=== PATIENT | female | born 1990 | race Caucasian/White ===

== ENCOUNTER 2016-11-08 22:43 | Emergency (ER) | payer OTHER ==
[2016-11-08 23:28] LABS: BILIRUBIN NEGATIVE (NEGATIVE); BLOOD 1+ Ery/uL (NEGATIVE); CLARITY CLEAR (CLEAR); COLOR YELLOW (YELLOW); GLUCOSE (U) NORMAL (NORMAL); KETONE (U) TRACE mg/dL (NEGATIVE); LEUKOCYTES NEGATIVE Leu/uL (NEGATIVE); NITRITE NEGATIVE (NEGATIVE); PROTEIN TRACE (LOW) mg/dL (NEGATIVE); SPECIFIC GRAVITY >=1.030 (1.001-1.030); UROBILINOGEN 0.2 mg/dL (0.2-1.0)
[2016-11-08 23:33] LABS: BACTERIA TRACE; MUCOUS LARGE
[2016-11-08 23:37] LABS: BASOPHIL 0.7 % (0-2); EOSINOPHIL 1.9 % (0-5); HCT 38.2 % (37.0-47.0); HGB 12.8 g/dl (12.5-16.0); LYMPHOCYTE 32.2 % (15-48); MCH 30.8 pg (25.0-31.0); MCHC 33.5 g/dL (32.0-36.0); MCV 91.8 fL (78.0-100.0); MONOCYTE 11.5 % (0-12); NEUTROPHIL 53.7 % (41-80); PLT 330 K/uL (150-400); RBC 4.16 M/uL (4.20-5.40); RDW 13.4 % (11.5-14.0); WBC 8.1 K/uL (4.0-10.5)
[2016-11-08 23:53] LABS: ALBUMIN 4.5 g/dL (3.5-5.0); BILIRUBIN - TOTAL 0.3 mg/dL (0.1-1.0); CREATININE 0.7 mg/dL (0.5-1.0); GLOBULIN (CALCULATION) 2.5 g/dL (2.2-4.2); POTASSIUM 4.2 mmol/L (3.5-5.1)
== END 2016-11-09 00:20 | disposition home or self-care (01) ==
LOC: FER 22:43
PROVIDERS: Nurse Practitioner
DX: B19.20 Unspecified viral hepatitis C without hepatic coma (principal); Z88.0 Allergy status to penicillin; Z86.19 Personal history of other infectious and parasitic diseases
CPT/HCPCS: 36415; 80053; 81001; 85025

== ENCOUNTER 2020-10-12 02:01 | Day surgery (SDCO) | payer OTHER ==
[~2020-10-12 02:01] MED LIST: BACTRIM DS TAB1 EACH PO; METRONIDAZOLE500 MG PO; ZPAK PO
[2020-10-12 03:19] LABS: BASOPHIL 0.2 % (0-2); EOSINOPHIL 0 % (0-5); HCT 36.6 % (37.0-47.0); HGB 12.4 g/dl (12.5-16.0); LYMPHOCYTE 5.7 % (15-48); MCH 29.2 pg (25.0-31.0); MCHC 33.9 g/dL (32.0-36.0); MCV 86.1 fL (78.0-100.0); MONOCYTE 4.4 % (0-12); MPV 8.8 fL (6.0-9.5); NEUTROPHIL 88.9 % (41-80); NRBC 0; PLT 291 K/uL (150-400); RBC 4.25 M/uL (4.20-5.40); RDW 13.2 % (11.5-14.0); WBC 18.6 K/uL (4.0-10.5)
[2020-10-12 03:31] LABS: TOTAL CELL COUNT 100
[2020-10-12 03:33] LABS: BAND 8 % (0-10); BASOPHIL(M) 0 % (0-2); EOSINOPHIL(M) 0 % (0-5); LYMPHOCYTE(M) 8 % (15-48); MONOCYTE(M) 4 % (0-12); NEUTROPHILS(M) 80 % (41-80); PLATELET ESTIMATE NORMAL; PLATELET MORPHOLOGY NORMAL
[2020-10-12 03:41] LABS: ALBUMIN 3.9 g/dL (3.4-5.0); BILIRUBIN - TOTAL 0.5 mg/dL (0.2-1.0); BUN/CREAT RATIO (CALC) 23.7 RATIO; CREATININE 0.38 mg/dL (0.51-0.95); GLOBULIN (CALCULATION) 3.7 g/dL; POTASSIUM 3.7 mmol/L (3.5-5.1); TOTAL PROTEIN 7.6 g/dL (6.4-8.2)
[2020-10-12 05:38] LABS: BILIRUBIN NEGATIVE (NEGATIVE); BLOOD NEGATIVE Ery/uL (NEGATIVE); CLARITY CLEAR (CLEAR); COLOR YELLOW (YELLOW); GLUCOSE (U) NORMAL (NORMAL); LEUKOCYTES NEGATIVE Leu/uL (NEGATIVE); NITRITE NEGATIVE (NEGATIVE); PROTEIN TRACE (LOW) mg/dL (NEGATIVE); SPECIFIC GRAVITY >=1.030 (1.001-1.030); UROBILINOGEN 0.2 mg/dL (0.2-1.0)
[2020-10-12 05:46] LABS: BARBITURATES NEGATIVE (NEGATIVE); ECSTASY (MDMA) NEGATIVE (NEGATIVE); MARIJUANA (THC) NEGATIVE (NEGATIVE); METHADONE NEGATIVE (NEGATIVE); OPIATES POSITIVE (NEGATIVE); OXYCODONE NEGATIVE (NEGATIVE)
[2020-10-12 05:49] LABS: BACTERIA TRACE; SQUAMOUS EPITHELIAL CELLS 20-50
[2020-10-12 05:50] LABS: AMPHETAMINES NEGATIVE (NEGATIVE)
[2020-10-12 07:03] LABS: CORONAVIRUS 2019 SARS-COV-2 NEGATIVE (NEGATIVE); INFLUENZA A NAA NEGATIVE (NEGATIVE)
--- NOTE | 2020-10-13 08:54 | NUR ---
PT WAS IN ACTIVE WITHDRAWLS SENT TO [facility] TO IN REHAB FACILITY
--- NOTE | 2020-10-13 08:54 | NUR ---
PT REPORTS SHE LIVES WITH BOYFRIEND AND IS INDEPENDENT WITH CARE;
== END 2020-10-12 20:57 | disposition other institution (70) ==
LOC: FER 02:01 → FMS 06:14
PROVIDERS: Emergency Medicine; ADMIT Obstetrics & Gynecology
DX: O99.321 Drug use complicating pregnancy, first trimester (principal); F11.23 Opioid dependence with withdrawal; O23.591 Infection of other part of genital tract in pregnancy, first trimester; B96.89 Other specified bacterial agents as the cause of diseases classified elsewhere; O98.411 Viral hepatitis complicating pregnancy, first trimester; B19.20 Unspecified viral hepatitis C without hepatic coma; O99.611 Diseases of the digestive system complicating pregnancy, first trimester; K21.9 Gastro-esophageal reflux disease without esophagitis; O99.341 Other mental disorders complicating pregnancy, first trimester; F41.9 Anxiety disorder, unspecified; F32.9 Major depressive disorder, single episode, unspecified; O98.311 Other infections with a predominantly sexual mode of transmission complicating pregnancy, first trimester; A60.00 Herpesviral infection of urogenital system, unspecified; A56.01 Chlamydial cystitis and urethritis; O99.331 Smoking (tobacco) complicating pregnancy, first trimester; F17.210 Nicotine dependence, cigarettes, uncomplicated; O99.351 Diseases of the nervous system complicating pregnancy, first trimester; G62.9 Polyneuropathy, unspecified; O34.219 Maternal care for unspecified type scar from previous cesarean delivery; Z3A.11 11 weeks gestation of pregnancy; Z79.2 Long term (current) use of antibiotics; Z20.822 Contact with and (suspected) exposure to COVID-19
CPT/HCPCS: 36415; 80053; 80305; 81001; 82009; 84702; G0378; J2405; J2765; J7030; J7120; U0002

== ENCOUNTER 2020-12-31 14:19 | Emergency (ER) | payer OTHER ==
[2020-12-31 16:15] LABS: BILIRUBIN 1+ mg/dL (NEGATIVE); BLOOD NEGATIVE Ery/uL (NEGATIVE); CLARITY CLEAR (CLEAR); COLOR YELLOW (YELLOW); GLUCOSE (U) NORMAL (NORMAL); LEUKOCYTES NEGATIVE Leu/uL (NEGATIVE); NITRITE NEGATIVE (NEGATIVE); PROTEIN 1+ mg/dL (NEGATIVE); SPECIFIC GRAVITY >=1.030 (1.001-1.030); UROBILINOGEN 0.2 mg/dL (0.2-1.0)
[2020-12-31 16:23] LABS: MUCOUS MODERATE
[2020-12-31 16:24] LABS: AMPHETAMINES NEGATIVE (NEGATIVE); BARBITURATES NEGATIVE (NEGATIVE); ECSTASY (MDMA) NEGATIVE (NEGATIVE); MARIJUANA (THC) NEGATIVE (NEGATIVE); METHADONE NEGATIVE (NEGATIVE); OPIATES NEGATIVE (NEGATIVE); OXYCODONE NEGATIVE (NEGATIVE)
[2020-12-31 17:22] LABS: INR 1.15 (0.9-1.2); PTT 23.5 SECONDS (22.2-34.7)
[2020-12-31 17:30] LABS: ALBUMIN 3.1 g/dL (3.4-5.0); BILIRUBIN - TOTAL 0.4 mg/dL (0.2-1.0); BUN/CREAT RATIO (CALC) 30.4 RATIO; CREATININE 0.56 mg/dL (0.51-0.95); GLOBULIN (CALCULATION) 4.2 g/dL; TOTAL PROTEIN 7.3 g/dL (6.4-8.2)
[2020-12-31 18:26] LABS: BASOPHIL 0.2 % (0-2); EOSINOPHIL 0 % (0-5); HCT 35.6 % (37.0-47.0); HGB 12.4 g/dl (12.5-16.0); LYMPHOCYTE 9.3 % (15-48); MCH 30.2 pg (25.0-31.0); MCHC 34.8 g/dL (32.0-36.0); MCV 86.8 fL (78.0-100.0); MONOCYTE 6.9 % (0-12); MPV 9.6 fL (6.0-9.5); NRBC 0; PLT 427 K/uL (150-400); RDW 14.1 % (11.5-14.0); WBC 17.5 K/uL (4.0-10.5)
[2020-12-31] MEDS ORDERED: ONDANSETRON ODT4 MG PO (18:44)
== END 2020-12-31 21:01 | disposition home or self-care (01) ==
LOC: FER 14:19
PROVIDERS: Emergency Medicine
DX: O99.322 Drug use complicating pregnancy, second trimester (principal); F11.23 Opioid dependence with withdrawal; F15.20 Other stimulant dependence, uncomplicated; O99.332 Smoking (tobacco) complicating pregnancy, second trimester; F17.210 Nicotine dependence, cigarettes, uncomplicated; Z98.890 Other specified postprocedural states; Z3A.00 Weeks of gestation of pregnancy not specified
CPT/HCPCS: 36415; 80053; 80305; 81001; 82553; 85025; 85610; 85730; J2405; J3480; J7030